=== PATIENT | female | born 1980 | race Caucasian/White ===

== ENCOUNTER → 2020-03-30 | Outpatient (CLI) | payer OTHER ==
--- NOTE | 2020-03-31 17:50 | RAD ---
BILATERAL SCREENING MAMMOGRAM, 3-D History: Routine screening. Comparison: None. This exam is a baseline. Technique: MLO and CC digital tomosynthesis (3D) images obtained. Radiologist reviewed these images on dedicated workstation. Findings: Breast Tissue Density B : There are scattered areas of fibroglandular density. There are no suspicious microcalcifications or architectural distortion. At the right upper far posterior breast laterally, there is a 0.45 cm diameter asymmetry which is located 10.5 cm from the nipple. This probably represents a lymph node. Left lower outer breast has 2 asymmetries which are 9.3 cm from nipple and 14.3 cm from the nipple. The larger of measures 0.5 cm diameter. IMPRESSION: Ultrasound examination bilaterally recommended. Spot compression bilaterally may be needed.. BI-RADS Category 0: Incomplete: Need additional imaging evaluation. The images were reviewed with computer-aided detection. Patient information is entered into reminder system with a target due date for the next screening mammogram. Mammography is the most sensitive method for finding small breast cancers, but it does not detect them all and is not a substitute for careful clinical examination. A negative mammogram does not negate a clinically suspicious finding and should not result in delay in biopsying a clinically suspicious abnormality. "Our facility is accredited by the [employer] Mammography [employer]." Electronically signed by: Will Liao MD (03/31/2020 5:48 PM) [place] [id number]
== END | disposition home or self-care (01) ==
LOC: MAMMO 07:58
PROVIDERS: ATTEND Family Medicine
DX: Z12.31 Encounter for screening mammogram for malignant neoplasm of breast (principal)
CPT/HCPCS: 77063; 77067

== ENCOUNTER → 2020-04-02 | Outpatient (CLI) | payer OTHER ==
--- NOTE | 2020-04-02 16:07 | RAD ---
Examination: BREAST BILATERAL History: Reason: ABNORMAL MAMMOGRAM CALLBACK / Spl. Instructions: / History: Comparison/Correlation: 03/30/2020 mammogram Findings: Bilateral limited breast ultrasound was performed. At the right low axilla, there is a 0.7 cm x 1 cm x 0.6 cm lymph node present. This is located 11.5 cm from nipple at the 11:00 region. At the left breast 4:00 region 9.5 cm from the nipple, there is a 0.6 cm by 0.4 cm by 0.4 cm lymph node present. The small defect involving the left posterior breast is not evident on ultrasound exam. Multiple left axillary lymph nodes are present with benign appearance measuring up to 2.5 cm diameter. Impression: BI-RADS Category 3-probably benign. Very small mass of the posterior left breast corresponding finding on ultrasound exam. Six-month follow-up left unilateral mammogram with tomosynthesis recommended to assess stability. Ultrasound may be needed at that time. Electronically signed by: Will Liao MD (04/02/2020 4:04 PM) [id number]
== END | disposition home or self-care (01) ==
LOC: US 13:45
PROVIDERS: ATTEND Family Medicine
DX: N63.23 Unspecified lump in the left breast, lower outer quadrant (principal); N63.11 Unspecified lump in the right breast, upper outer quadrant
CPT/HCPCS: 76641